=== PATIENT | male | born 1990 | race Caucasian/White ===

== ENCOUNTER 2021-11-29 18:41 | Emergency (ER) | payer BC, SELFPAY ==
[2021-11-29 18:50] VITALS: PULSE 60; RESP 22; TEMP 36.7; O2SAT 98; BMI 29.1
--- NOTE | 2021-11-29 19:20 | EXP.UTC ---
Discharge Plan Disposition Patient Disposition: Home, Self-Care Condition: Good Prescriptions Prescriptions: New amoxicillin-pot clavulanate 500-125 mg Tablet 1 tab PO Q12H Qty: 5 0RF Referrals Follow up/Referrals: Provider,Referral, MD [Primary Care Provider] - See instructions Activity Restrictions/Add. Instructions Additional Instructions/Restrictions: Suture instructions: ?You have required stitches today. Please read the following instructions so you know how to care for them: ?1. Keep wound area dry for the first 24 hours. 2?? May clean gently with mild soap and water, after 48 hours to prevent crusting over suture knots. 3. You may shower if your provider gives permission but do not take a bath until the skin is healed.. 4. Never leave a wet dressing or Band-Aid on your stitches as this allows bacteria to reach the area and may cause infection. Band-aids can cause the wound to sweat and not recommended to wear for long periods of time Watch for signs of infection: ? Increasing redness, tenderness or warmth around the suture site ? Unusual swelling around the site ? Appearance of pus around each suture or any red streaks ? Fever If you develop any of the above signs or symptoms of infection, Follow up with Family Physician immediately 5. Suture removal in _10-14___days 6. Return to [facility] or follow up with family doctor for removal. This can be done by any medical provider dur?ing regular hours on Tuesday through Tuesday, by appointment. Clinical Impressions Clinical Impression: Laceration Stand Alone Forms Stand Alone Forms: Work/School Release Discharge ED Provider: Bindu Benitez [facility] [place] HPI General Stated complaint: AO10@ 1800 lac to RT hand Mode of Arrival: Ambulatory Source of Information: Patient Limitations: No Limitations Time Seen by Provider: 11/29/21 19:20 Description of Symptoms (Recalled from Triage Doc. by RN): PATIENT C/O LACERATION TO RIGHT HAND/THUMB. HE REPORTS HE CUT IT ON A PIECE OF FLEXIBLE GAS PIPE TODAY. HE STATES HE IS NOT UP TO DATE ON TDAP HEENT Symptoms (Recalled from RN notes): No Resp Symptoms (Recalled from RN notes): No Skin Symptoms (Recalled from RN notes): Yes MS Symptoms (Recalled from RN notes): No Functional Status (Recalled from RN notes): WNL History of Present Illness Provider Complaint: Patient states he was working with flexible gas line earlier when it had a megha on it and the line slipped and cut him on the right hand at the base of his thumb States that he immediately applied pressure and called his family to come and get him States that it has almost stopped bleeding but when they looked at it knew it needed sutures so he came in to get it checked Related Data Previous Rx's Medication Instructions Recorded amoxicillin 500 mg-potassium 1 tab PO Q12H #5 tabs 11/29/21 clavulanate 125 mg tablet Allergies Allergy/AdvReac Type Severity Reaction Status Date / Time No Known Allergies Allergy Verified 11/29/21 19:06 Worker's Comp Is this a Worker's Comp case?: No PFSH PFSH Medical History (Updated 11/29/21 @ 20:02 by Bindu Benitez APRN) No significant past medical history Social History (Updated 11/29/21 @ 19:06 by Ashley Davison RN) Smoking Status: Current every day smoker alcohol intake: current current occupational status: other Travel in the last 8 weeks: None ROS Obtained: Yes All systems reviewed & no additional complaints except as documented and Yes Systems reviewed as appropriate & no additional complaints except as documented Constitutional Constitutional: Reports system reviewed and no additional complaints, except as documented and Reports as per HPI ENT Ears, Nose, Mouth, and Throat: Reports system reviewed and no additional complaints, except as documented and Reports as per HPI Respiratory Respiratory: Reports system reviewed and no additional complaints, except as documented and Reports as per HPI Integumentary/Breast
[2021-11-29 19:31] VITALS: BP 0/0; PULSE 60; RESP 22; TEMP 36.7; O2SAT 98
== END 2021-11-29 20:10 | disposition home or self-care (01) ==
PROVIDERS: Emergency Provider Nurse Practitioner
DX: S61.411A Laceration without foreign body of right hand, initial encounter (principal); W26.8XXA Contact with other sharp object(s), not elsewhere classified, initial encounter; Z23 Encounter for immunization
CPT/HCPCS: 12001; 90471; 90715; 99212; G0463

== ENCOUNTER 2021-12-11 10:08 | Emergency (ER) | payer BC, SELFPAY ==
[2021-12-11 10:15] VITALS: BP 126/72; PULSE 86; RESP 17; TEMP 36.6; O2SAT 100; BMI 29.1
[2021-12-11 10:18] VITALS: BP 126/72; PULSE 86; RESP 17; TEMP 36.6
== END 2021-12-11 10:19 | disposition home or self-care (01) ==
PROVIDERS: Emergency Provider Nurse Practitioner; PCP Family Medicine
DX: Z48.02 Encounter for removal of sutures (principal)